=== PATIENT | female | born 1960 | race Caucasian/White ===

== ENCOUNTER 2020-04-29 17:59 | Emergency (ER) | payer OTHER, SELFPAY ==
--- NOTE | ~2020-04-29 | XR_ITS ---
EXAMINATION: XR ankle LT min 3V, XR foot LT min 3V DATE: 04/29/2020 18:17 INDICATION: Lateral left foot and ankle pain post twisting injury. TECHNIQUE: 1. Anteroposterior, mortise, additional oblique and lateral view of the left ankle were obtained. 2. Dorsoplantar, two oblique and lateral views of the left foot were obtained. COMPARISON: 03/27/2018 FINDINGS: Again seen is a minimally displaced chronic nonunited fracture across the tip of the lateral malleolu s. Acute nondisplaced fracture across the base of the fifth metatarsal which appears to extend to the cortex medially at the junction of the articulation with the cuboid and base of the fourth metatarsa l. No other fractures identified. Buddy remains essentially anatomic. Mild polyarticular osteoarthri tis at several of the joints in the mid and forefoot. Diffuse osteopenia. Small plantar calcaneal spu r. No ankle joint effusion. IMPRESSION: 1. Acute nondisplaced intra-articular fracture at the base of the left fifth metatarsal. 2. Minimally displaced chronic nonunited avulsion fracture at the tip of the lateral malleolus. Reviewed, dictated and finalized at location A. IMPRESSION: 1. Acute nondisplaced intra-articular fracture at the base of the left fifth me tatarsal. 2. Minimally displaced chronic nonunited avulsion fracture at the tip of the la teral malleolus.
--- NOTE | 2020-04-29 18:07 | ED.LOWEXIN ---
HPI - Extremity Injury (Lower) General Chief Complaint: Extremity Injury, Lower Stated Complaint: right foot pain Source: patient and RN notes reviewed Mode of arrival: ambulatory Limitations: no limitations History of Present Illness HPI Narrative: The patient, with a history of AODM, ankle fractures and is on Lyrica for neuropathy, presents with left ankle pain. Patient states she slipped while wearing flip-flops yesterday and complains of lateral pain that is worse with motion, better at rest. No bleeding, deformity and pain is worse with the fifth metatarsal proximally. She also request medication for itchy nose and sinus/allergy headaches. Related Data Home Medications Medication Instructions Recorded Confirmed glipizide 2.5 mg PO BID 08/11/19 08/11/19 metformin 1,000 mg PO BID 08/11/19 08/11/19 pregabalin [Lyrica] 75 mg PO HS 08/11/19 08/11/19 omeprazole 04/29/20 Allergies Allergy/AdvReac Type Severity Reaction Status Date / Time Jgdxgpt-Nsz-Gmi Reductase Allergy Mild pain Verified 08/11/19 15:38 Inhibitor acetaminophen Allergy Unknown Itching Verified 08/11/19 15:38 hydrocodone Allergy Unknown Itching Verified 08/11/19 15:38 propoxyphene Allergy Unknown Swelling Verified 08/11/19 15:38 of Lip/Tongue/Throat tramadol Allergy Unknown Itching Verified 08/11/19 15:38 codeine AdvReac Unknown Nausea and Verified 08/11/19 15:38 Vomiting Review of Systems Review of Systems: Narrative: General/Constitutional: No weight loss,fever Eyes: N0: Redness,discharge Ears/Nose/Throat: No: Epistaxis,ear discharge Respiratory: Denies: Hemoptysis Gastrointestinal: No Vomiting, Bleeding-rectal Skin: No Lumps, eruption Neurologic: No Focal Weakness,Sz Hematologic: Denies: Petechiae/Purpura Psychiatric: No: Suicida ideationl All Other Systems: Reviewed and Negative [facility] Past Medical History Medical History (Updated 04/30/20 @ 08:45 by Igor Celestin MD) Diabetes GERD (gastroesophageal reflux disease) Hyperlipidemia Osteoarthritis Tubal infertility in female Surgical History Surgical History (Updated 08/13/19 @ 12:34 by Malou Fox NP) History of cholecystectomy History of [place] fundoplication Previous section Comments At time of signature, agree with nursing past medical, surgical, social and family history. There is no relevant family history pertinent to the presenting complaint Exam Narrative: Exam Narrative: General Appearance: Well appearing, Well nourished, No distress EYE: PERRLA, EOMI, Conjunctiva clear Ears: External ear normal, Auditory canal normal Nose: Normal nose, Nares clear Mouth/Throat: Normal appearing, Normal lips Neck: Supple Respiratory: Airway patent, No respiratory distress Musculoskeletal: Normal strength (mostly intact, limited flexion/extension by pain), Tenderness ( laterally, with mild decreased ROM), Swelling (laterally), Other (no anterior drawer, no collateral laxity, no Achilles tenderness, ++ fifth MT tenderness) Skin: Warm, Dry, Normal color Neurological: A&O x3, Speech clear, CN II-XII intact Psychiatric: Normal mood, Normal affect Course Course Emergency Course: Films visualized, interpreted by radiologist, agree, ABnormal see report Vital Signs Vital signs: Vital Signs Temperature 99.3 F 04/29/20 18:20 Pulse Rate 102 H 04/29/20 18:20 Respiratory Rate 16 04/29/20 18:20 Blood Pressure 132/75 04/29/20 18:20 Pulse Oximetry 99 04/29/20 18:20 Temperature 99.3 F 04/29/20 18:20 Pulse Rate 102 H 04/29/20 18:20 Respiratory Rate 16 04/29/20 18:20 Blood Pressure 132/75 04/29/20 18:20 Pulse Oximetry 99 04/29/20 18:20 Discharge Plan Discharge Clinical Impression: Allergic headache Fracture of fifth metatarsal bone Qualifiers: Encounter type: initial encounter Fracture type: closed Fracture alignment: nondisplaced Laterality: left Qualified Code(s): S92.355A - Nondisplaced fra
[2020-04-29 18:20] VITALS: BP 132/75; PULSE 102; RESP 16; TEMP 37.4; O2SAT 99
== END 2020-04-29 18:34 | disposition home or self-care (01) ==
PROVIDERS: Emergency Provider Emergency Medicine; PCP Nurse Practitioner Family
DX: S92.355A Nondisplaced fracture of fifth metatarsal bone, left foot, initial encounter for closed fracture (principal); X50.9XXA Other and unspecified overexertion or strenuous movements or postures, initial encounter; G44.89 Other headache syndrome; M85.80 Other specified disorders of bone density and structure, unspecified site; K21.9 Gastro-esophageal reflux disease without esophagitis; E78.5 Hyperlipidemia, unspecified; M19.90 Unspecified osteoarthritis, unspecified site; E11.40 Type 2 diabetes mellitus with diabetic neuropathy, unspecified
CPT/HCPCS: 73610; 73630; 99213; G0463

== ENCOUNTER 2020-05-31 11:47 | Emergency (ER) | payer OTHER, SELFPAY ==
--- NOTE | 2020-05-31 11:54 | ED.LOWEXIN ---
HPI - Extremity Injury (Lower) General Chief Complaint: Extremity Injury, Lower Stated Complaint: right great toe Time Seen by Provider: 05/31/20 12:00 Source: patient and RN notes reviewed Mode of arrival: ambulatory Limitations: no limitations History of Present Illness HPI Narrative: 59-year-old female with history of diabetes, diabetic neuropathy presents with concern for redness, tenderness, swelling to the lateral edge of her left great toe. Reports she has history of foot infections and had this toe x-rayed at her orthopedic doctor upon injury. Reports the x-ray was unremarkable. Reports several day history of redness, tenderness, swelling next to the nail bed of the first toe of the right foot. She denies fever, drainage, redness of the foot, damage to the nail MD complaint: foot injury Related Data Home Medications Medication Instructions Recorded Confirmed glipizide 2.5 mg PO BID 08/11/19 08/11/19 metformin 1,000 mg PO BID 08/11/19 08/11/19 pregabalin [Lyrica] 75 mg PO HS 08/11/19 08/11/19 omeprazole 04/29/20 Allergies Allergy/AdvReac Type Severity Reaction Status Date / Time Tljbyej-Yps-Kid Reductase Allergy Mild pain Verified 08/11/19 15:38 Inhibitor acetaminophen Allergy Unknown Itching Verified 08/11/19 15:38 hydrocodone Allergy Unknown Itching Verified 08/11/19 15:38 propoxyphene Allergy Unknown Swelling Verified 08/11/19 15:38 of Lip/Tongue/Throat tramadol Allergy Unknown Itching Verified 08/11/19 15:38 codeine AdvReac Unknown Nausea and Verified 08/11/19 15:38 Vomiting Review of Systems Review of Systems: Narrative: CONSTITUTIONAL: Denies malaise, chills, sweats, or fever. CARDIOVASCULAR: Denies chest pain, palpitations, or edema. RESPIRATORY: Denies cough or dyspnea. SKIN: Reports tenderness, redness, mild swelling near the nailbed of the first toe of the right foot MUSCULOSKELETAL: Denies musculoskeletal pain All systems reviewed & are unremarkable except as noted in HPI and below PMFSH Past Medical History Medical History (Updated 05/31/20 @ 12:09 by She Lino NP) Diabetes GERD (gastroesophageal reflux disease) Hyperlipidemia Osteoarthritis Tubal infertility in female Surgical History Surgical History (Updated 08/13/19 @ 12:34 by Malou Fox NP) History of cholecystectomy History of [place] fundoplication Previous section Comments At time of signature, agree with nursing past medical, surgical, social and family history. There is no relevant family history pertinent to the presenting complaint Exam Narrative: Exam Narrative: GENERAL: Well-appearing, well-nourished, and in no acute distress. HEAD: Normocephalic, atraumatic. EYES: PERRLA, conjunctivae clear NECK: Supple. CHEST: Speaks in full sentences. No respiratory distress. HEART: Regular rate and rhythm. Normal and equal peripheral pulses. EXTREMITIES: First digit of right foot has normal strength, decreased sensation, normal range of motion. No digit edema or ecchymosis. 5/5 strength with digit flexion and extension. No open wounds, no skin tenting, no devitalized tissue or atrophy, no trophic changes, no obvious deformity, alignment normal, no point tenderness, nearby joints and structures intact. Distal pulses palpable and equal bilaterally, skin warm, dry, pink. Capillary refill less than 3 seconds. SKIN: Warm, dry, no rash. Erythema, mild induration, tenderness without fluctuation noted lateral edge of the nail bed of the first digit of the right foot NEURO: Alert and oriented x3. PSYCH: Normal mood and affect Course Course Emergency Course: Patient is aware of diagnosis, understands and agrees to treatment plan. Anticipatory guidance given. Patient agrees to follow-up as directed and is aware of reasons to seek care at the emergency department. Portions of this record may have been created with voice recognition software Vital Signs Vital signs: Vital Signs Temperature 99
[2020-05-31 12:01] VITALS: BP 146/68; PULSE 85; RESP 16; TEMP 37.2; O2SAT 100
== END 2020-05-31 12:17 | disposition home or self-care (01) ==
PROVIDERS: Emergency Provider Nurse Practitioner; PCP Nurse Practitioner Family
DX: L03.031 Cellulitis of right toe (principal); E11.9 Type 2 diabetes mellitus without complications; K21.9 Gastro-esophageal reflux disease without esophagitis; E78.5 Hyperlipidemia, unspecified; M19.90 Unspecified osteoarthritis, unspecified site
CPT/HCPCS: 99213; G0463

== ENCOUNTER 2021-04-09 13:13 | Outpatient (CLI) | payer OTHER, SELFPAY ==
--- NOTE | ~2021-04-09 | US_ITS ---
EXAMINATION: US FNA w image guidance DATE: 04/09/2021 14:10 INDICATION: Nontoxic single thyroid nodule TECHNIQUE: A time-out was performed to verify the patient's name, date of , and procedure to be performed . The procedure and its benefits and risks were discussed with the patient. Risks specifically discus sed included bleeding and infection. The patient understood the risks and agreed to proceed. The neck was prepped and draped in the usual sterile manner. 3 mL 1% lidocaine was used for local anesthesia . 6 passes were made with a 25G needle into the lesion. Appropriate needle location was documented with continuous sonographic guidance. The specimens were passed to the hematology technologist in the room. A sterile bandage was applied. There were no immediate complications. FINDINGS: Grayscale ultrasound images demonstrate biopsy needles advanced into a 1.2 cm TI RADS 5 wider than ta ll very hypoechoic nodule with rim calcification and lobular margins in the left thyroid lobe. IMPRESSION: 1. Successful ultrasound-guided fine needle aspiration of a 1.2 cm TI RADS 5 left thyroid nodule. Reviewed, dictated and finalized at location A. IMPRESSION: 1. Successful ultrasound-guided fine needle aspiration of a 1.2 cm TI RADS 5 l eft thyroid nodule.
== END 2021-04-09 13:14 | disposition home or self-care (01) ==
PROVIDERS: PCP Nurse Practitioner Family; Visit Provider Otolaryngology
DX: E04.1 Nontoxic single thyroid nodule (principal)
CPT/HCPCS: 10005; 88173; 88305

== ENCOUNTER 2021-05-08 18:35 | Observation (INO) | payer OTHER, SELFPAY ==
--- NOTE | ~2021-05-08 | XR_ITS ---
XR chest 2V DATE: 05/08/2021 19:04 INDICATION: Left-sided chest pain. TECHNIQUE: PA and lateral views COMPARISON: 10/11/2018 PA and lateral chest FINDINGS: Normal heart size. No hilar or mediastinal enlargement. Moderate sized hiatal hernia. No pulmonary infiltrate or consolidation, pleural effusion or pulmonary vascular congestion or pneumo thorax. Status post cholecystectomy. IMPRESSION: No active cardiopulmonary disease Hiatal hernia Status post cholecystectomy Reviewed, dictated and finalized at location A.
[2021-05-08 18:39] VITALS: BP 164/92; PULSE 85; RESP 16; TEMP 36.6; O2SAT 97
--- NOTE | 2021-05-08 18:43 | ECG_ITS ---
Measurements Intervals [place] Rate: 84 P: 13 WV: 125 QRS: 27 QRSD: 80 T: 30 QT: 368 QTc: 437 Interpretive Statements SINUS RHYTHM BASELINE WANDER- V3 NORMAL ECG Electronically Signed On 05-09-2021 8:17:13 CDT by Cirilo Garcia D.O.
[2021-05-08 18:53] LABS: Basophils Absolute Auto 0.1 K/mm3 (0.0-0.1); Basophils Percent Auto 0.8 % (0.2-1.2); Eosinophils Absolute Auto 0.2 K/mm3 (0-0.3); Eosinophils Percent Auto 3.4 % (0-4.4); Hematocrit 39.9 % (37.0-47.0); Hemoglobin 12.7 g/dL (12.0-15.0); Immature Granulocyte Absolute 0.02 K/mm3 (0.00-0.031); Immature Granulocyte Percent A 0.3 % (0-0.5); Lymphocytes Absolute Auto 2.65 K/mm3 (0.9-3.2); Lymphocytes Percent Auto 42.6 % (18.3-44.2); Mean Corpuscular HGB Conc 31.8 g/dl (32-36); Mean Corpuscular Hemoglobin 26.1 pg (26-34); Mean Corpuscular Volume 81.9 fl (80-100); Mean Platelet Volume 9.7 fl (7.4-10.4); Monocytes Absolute Auto 0.4 K/mm3 (0.1-0.6); Monocytes Percent Auto 6.6 % (2.6-8.5); Neutrophils Absolute Auto 2.9 K/mm3 (1.3-6.7); Neutrophils Percent Auto 46.3 % (45.5-73.1); Platelet Count Result 233 k/mm3 (150-375); Red Blood Count 4.87 M/mm3 (4.2-5.4); White Blood Count 6.2 K/mm3 (4.5-10.0)
[2021-05-08 19:02] LABS: INR 0.9; Prothrombin Time 11.7 Seconds (11.1-14.7)
[2021-05-08 19:03] LABS: Partial Thromboplastin Time 27.5 SECONDS (22.3-36.8)
[2021-05-08 19:05] LABS: Anion Gap 10 mmol/L (8-16); Blood Urea Nitrogen 13 mg/dL (7-17); Calcium 9.5 mg/dL (8.4-10.2); Carbon Dioxide 27 mmol/L (22-30); Chloride 105 mmol/L (98-107); Estimated CRCL calculation 62 ml/min; Estimated Glomerular Filt Rate > 60; Glucose 167 mg/dL (65-110); Potassium 4.2 mmol/L (3.4-5.0); Sodium 142 mmol/L (137-145)
[2021-05-08 19:15] LABS: Troponin I < 0.012 ng/mL (0.000-0.034)
--- NOTE | 2021-05-08 19:20 | ED.CHESTPAIN ---
HPI - Chest Pain General Chief Complaint: Chest Pain Stated Complaint: chest pain Time Seen by Provider: 05/08/21 18:51 Source: patient Mode of arrival: ambulatory Limitations: no limitations History of Present Illness HPI narrative: Patient is a 60-year-old female complaining of chest pain, left chest, tightness, rating to left arm, 6 out of 10, started this afternoon. Patient denies any shortness of breath, abdominal pain, nausea, vomiting, diaphoresis, fever or chills. Related Data Home Medications Medication Instructions Recorded Confirmed glipizide 2.5 mg PO BID 08/11/19 08/11/19 metformin 1,000 mg PO BID 08/11/19 08/11/19 pregabalin [Lyrica] 75 mg PO HS 08/11/19 08/11/19 omeprazole 04/29/20 Allergies Allergy/AdvReac Type Severity Reaction Status Date / Time Nftzpsf-Vgg-Xpp Reductase Allergy Mild pain Verified 08/11/19 15:38 Inhibitor acetaminophen Allergy Unknown Itching Verified 08/11/19 15:38 hydrocodone Allergy Unknown Itching Verified 08/11/19 15:38 propoxyphene Allergy Unknown Swelling Verified 08/11/19 15:38 of Lip/Tongue/Throat tramadol Allergy Unknown Itching Verified 08/11/19 15:38 codeine AdvReac Unknown Nausea and Verified 08/11/19 15:38 Vomiting Review of Systems Review of Systems: All systems reviewed & are unremarkable except as noted in HPI and below Constitutional: Constitutional: Denies body ache(s), Denies chills, Denies excessive sweating, Denies fatigue, Denies fever(s), Denies headache(s), Denies lethargy, Denies malaise, Denies weakness and Denies weight loss Eyes: Eyes: Denies blurry vision, Denies change in vision and Denies loss of vision ENT: Denies dizziness, Denies ear discharge, Denies headache(s), Denies lip swelling, Denies epistaxis, Denies nasal congestion, Denies neck pain, Denies throat swelling and Denies tongue swelling Cardiovascular: Cardiovascular: Denies diaphoresis, Denies rapid heart rate, Denies edema, Denies irregular heart rhythm, Denies lightheadedness, Denies palpitations, Denies dyspnea and Denies dyspnea on exertion Respiratory: Respiratory: Denies chest congestion, Denies cough, Denies hemoptysis, Denies dyspnea and Denies dyspnea on exertion Gastrointestinal: Gastrointestinal: Denies abdominal pain, Denies melena, Denies hematochezia, Denies diarrhea, Denies nausea, Denies vomiting and Denies hematemesis Musculoskeletal: Musculoskeletal: Denies abnormal gait, Denies deformity, Denies joint swelling, Denies limited range of motion, Denies neck pain and Denies numbness Neurologic: Denies Abnormal speech present, Denies abnormal gait, Denies confusion, Denies dizziness, Denies headache(s), Denies focal weakness, Denies loss of vision, Denies numbness, Denies Other visual disturbances, Denies Sensory deficit (Neuro) and Denies weakness Psychiatric: Psychiatric: Denies confusion, Denies depression, Denies auditory hallucinations, Denies homicidal ideation and Denies suicidal ideation Endocrine: Endocrine: Denies cold intolerance, Denies excessive sweating, Denies fatigue, Denies heat intolerance and Denies palpitations Hematologic/Lymphatic: Hematologic/Lymphatic: Denies easy bleeding and Denies easy bruising Allergic/Immunologic: Allergic/Immunologic: Denies lip swelling, Denies throat swelling and Denies tongue swelling PMFSH Past Medical History Medical History Diabetes GERD (gastroesophageal reflux disease) Hyperlipidemia Osteoarthritis Tubal infertility in female Surgical History Surgical History History of cholecystectomy History of [place] fundoplication Previous section Exam Const: General: cooperative, healthy appearing, comfortable, no acute distress, well developed, alert and awake; No confusion Orientation/consciousness: oriented to person, oriented to place, oriented to time, patient oriented x3 and No
[2021-05-08 20:57] VITALS: BP 162/90; PULSE 87; RESP 18; O2SAT 97
[2021-05-08 22:00] LABS: D Dimer 0.35 ug/mL (<0.48)
--- NOTE | 2021-05-08 22:05 | PC.NURSE ---
called to give report, i was told the nurse is in a room with a patient and that she will call me back .
[2021-05-08 22:06] LABS: Troponin I < 0.012 ng/mL (0.000-0.034)
--- NOTE | 2021-05-08 22:21 | PM.IMHP ---
H&P: HPI History of Present Illness Date/Time: 05/08/21 22:21 this is a 60-year-old female patient who has a past medical history of diabetes. The patient stated that she also has history of carpal tunnel syndrome as well as acid reflux. The patient has no prior CV any heart disease or high blood pressure. The patient stated that she was sitting outside today watching her grandchildren's swim when she developed some left chest pain some tightness and some left arm pain left shoulder pain. She rated her pain 6/10. Started this afternoon. The patient stated that she would lay down and she slipped for brief period time but then when she woke up she was still complaining of left shoulder left elbow left wrist pain. The patient stated she was not sure she was having some acid reflux because she also had some epigastric discomfort. She said that she took for low-dose aspirin prior to coming to the emergency room. The patient stated that she felt nauseated and was diaphoretic at the time. She has not had any previous stress test in the past. Patient has had injections in her left hand in the past for arthritis and she thought that maybe her carpal tunnel was bothering her today. Two sets of troponin are found to be negative so far and her EKG was read as normal sinus rhythm. Her blood sugar was noted to be 167. The patient was requesting to go home. However we were able to convince the patient to stay overnight to be evaluated. The patient still continues to have some left shoulder and left elbow pain. She states that she also has some pain under her left breast which is not reproducible. She denies any shortness of breath. She states that the pain is fading and is almost nearly gone. The patient is being admitted to observation on the date of service of 05/08/2021. Chief Complaint: Chest pain Review of Systems Review of Systems: All systems reviewed & are unremarkable except as noted in HPI and below Constitutional: Constitutional: Reports as per HPI and Reports no additional constitutional complaints Eyes: Eyes: Reports as per HPI and Reports no additional eye complaints ENT: Reports system reviewed and no additional complaints, except as documented and Reports Normal hearing present Cardiovascular: Cardiovascular: Reports no additional cardiovascular complaints Respiratory: Respiratory: Reports no additional respiratory complaints and Reports no additional respiratory complaints Gastrointestinal: Gastrointestinal: Reports as per HPI and Reports no additional gastrointestinal complaints Musculoskeletal: Musculoskeletal: Reports no additional musculoskeletal complaints Integumentary/Breasts: Skin/Breast: Reports system reviewed and no additional complaints, except as docu and Reports as per HPI Neurologic: Reports system reviewed and no additional complaints, except as documented, Reports as per HPI and Reports Normal hearing present Psychiatric: Psychiatric: Reports no additional psychiatric complaints and Reports as per HPI Endocrine: Endocrine: Reports no additional endocrine complaints Hematologic/Lymphatic: Hematologic/Lymphatic: Reports no additional hematologic/lymphatic complaints Allergic/Immunologic: Allergic/Immunologic: Reports no additional allergic/immunologic complaints [facility] Past Medical History Medical History (Updated 05/08/21 @ 22:33 by Gina Moscoso NP) Diabetes GERD (gastroesophageal reflux disease) History of peptic ulcer disease Hyperlipidemia Osteoarthritis Peripheral neuropathy Seasonal allergic conjunctivitis Tubal infertility in female Vitamin D deficiency Surgical History Surgical History (Updated 05/08/21 @ 22:28 by Gina Moscoso NP) H/O rhinoplasty H/O tubal ligation History of carpal tunnel release Right wrist History of cholecystectomy History of [place] fundoplication History of tonsillectomy and adenoidectomy Previous section S/P cubital tunnel release Right elbow
--- NOTE | 2021-05-08 22:43 | ADMGEN ---
This patient, aMkenna Brown, was admitted to IMU Room 211-01. Patient/family oriented to hospital policies and general routines including ID bracelet, bed and alarms, visiting hours, pain management, procedures, bathroom and other care routines, personal items, smoking policy, room service/diet, and visiting hours. Information on how to activate the Rapid Response Team has been discussed. Patient/Family are encouraged to report perceived risks to care and to ask questions if they do not understand what they are told or what they should do.
[2021-05-08 23:06] VITALS: BMI 24.5
[2021-05-09] VITALS: BP 160/74; PULSE 75; PULSE 83; RESP 16; TEMP 36.2; O2SAT 99
[2021-05-09 01:08] LABS: Add Urine Microscopic? YES; Appearance Urine Clear (Clear); Bilirubin Urine Negative (Negative); Blood Urine Negative (Negative); Color Urine Straw (Yellow); Glucose Urine UA 1+ mg/dL (Negative); Ketones Urine Negative (Negative); Leukocyte Esterase Ur Negative LEU/UL (NEGATIVE); Nitrate Urine Negative (Negative); Protein Urine Negative (Negative); RBC Urine 0-2 /hpf (0-2); Specific Grav Ur 1.009 (1.001-1.035); Urobilinogen Urine Negative mg/dL (<2.0); WBC Urine 0-3 /hpf (0-3)
[2021-05-09 01:31] LABS: Troponin I < 0.012 ng/mL (0.000-0.034)
[2021-05-09 02:00] VITALS: PULSE 72
[2021-05-09 04:00] VITALS: BP 125/67; PULSE 73; PULSE 77; RESP 16; TEMP 36.7; O2SAT 98
[2021-05-09 05:17] LABS: Alanine Aminotransferase 22 U/L (4-35); Albumin Level 4.3 g/dL (3.5-5.1); Alkaline Phosphatase 91 U/L (38-126); Anion Gap 8 mmol/L (8-16); Aspartate Amino Transferase 32 U/L (14-36); Bilirubin,Total 0.6 mg/dL (0.2-1.3); Blood Urea Nitrogen 12 mg/dL (7-17); Calcium 8.9 mg/dL (8.4-10.2); Carbon Dioxide 26 mmol/L (22-30); Chloride 106 mmol/L (98-107); Estimated CRCL calculation 72 ml/min; Estimated Glomerular Filt Rate > 60; Glucose 93 mg/dL (65-110); Lactate Dehydrogenase 389 U/L (313-618); Lipase 192 U/L (23-300); Magnesium 1.2 mg/dL (1.6-2.3); Potassium 3.7 mmol/L (3.4-5.0); Sodium 140 mmol/L (137-145)
[2021-05-09 05:20] LABS: Basophils Absolute Auto 0.1 K/mm3 (0.0-0.1); Basophils Percent Auto 1.3 % (0.2-1.2); Eosinophils Absolute Auto 0.3 K/mm3 (0-0.3); Hematocrit 37.6 % (37.0-47.0); Immature Granulocyte Absolute 0.04 K/mm3 (0.00-0.031); Immature Granulocyte Percent A 0.6 % (0-0.5); Lymphocytes Absolute Auto 3.15 K/mm3 (0.9-3.2); Lymphocytes Percent Auto 49.7 % (18.3-44.2); Mean Corpuscular HGB Conc 31.9 g/dl (32-36); Mean Corpuscular Hemoglobin 25.6 pg (26-34); Mean Corpuscular Volume 80.3 fl (80-100); Mean Platelet Volume 10.3 fl (7.4-10.4); Monocytes Absolute Auto 0.5 K/mm3 (0.1-0.6); Neutrophils Absolute Auto 2.2 K/mm3 (1.3-6.7); Neutrophils Percent Auto 35.4 % (45.5-73.1); Platelet Count Result 259 k/mm3 (150-375); Red Blood Count 4.68 M/mm3 (4.2-5.4); Red Cell Distribution Width 13.9 % (11.5-14.5); White Blood Count 6.3 K/mm3 (4.5-10.0)
[2021-05-09 06:00] VITALS: PULSE 80
[2021-05-09 08:00] VITALS: BP 139/69; PULSE 82; PULSE 83; RESP 18; TEMP 36.7; O2SAT 97
[2021-05-09 08:39] LABS: Glucose Point of Care 110 mg/dl (65-105)
--- NOTE | 2021-05-09 09:14 | PM.DS ---
DS: Admitting Diagnosis Admitting Diagnosis Chest pain, heart burn symptoms DS: Discharge Diagnosis Discharge Diagnosis (1) GERD (gastroesophageal reflux disease): Code(s): K21.9 - Gastro-esophageal reflux disease without esophagitis Status: Chronic (2) Chest pain: Qualifiers: Chest pain type: unspecified Qualified Code(s): R07.9 - Chest pain, unspecified Code(s): R07.9 - Chest pain, unspecified Status: Acute (3) Diabetes: Code(s): E11.9 - Type 2 diabetes mellitus without complications Status: Chronic DS: Summary Hospital Course Hospital Course: This is a very pleasant 52-year-old woman with past medical history of type 2 diabetes mellitus, gastroesophageal reflux disease (history [place] fundoplication procedure in the distant past), history peptic ulcer disease, carpal tunnel syndrome, and hyperlipidemia, who presented to the emergency department on 05/08 with concern chest pain along with left arm and shoulder pain. This was rated as 6/10. Not associated with exertion and came on at rest. This was worse when she would lay down flat. Better when she was upright. In the emergency department she had a chest x-ray that showed a hiatal hernia but otherwise no significant findings. EKG showed normal sinus rhythm. No significant ST-T wave changes. She did receive a baby aspirin in the emergency department. She was admitted to the hospital for observation and her troponins were followed. Three sets of troponins were negative. Her pain quickly subsided and resolved. She did endorse missing her PPI the day prior and felt her symptoms were consistent with gastroesophageal reflux disease which she dealt with for many years. However, given history of diabetes, and other risk factors, I had a long discussion with her about the need for close follow-up with her primary provider and undergoing stress testing to evaluate for coronary artery disease. During her stay her blood pressure was noted to be elevated and she was initiated on carvedilol 12.5 mg b.i.d. she was recently diagnosed with urinary tract infection and her Macrobid was continued. Her other home medications were continued. She did have elevated cholesterol, and elevated LDL of 150. I discussed with her my recommendation of initiation a statin. She has had prior significant myalgias with statins and did not want initiated during this hospitalization, I encouraged her to discuss this with her primary provider. Time Spent with Patient Time attestation: Total time spent providing and/or coordinating discharge services: 35 Exam Narrative: Gen: Alert, NAD Abd: Soft, NT, ND Heart: RRR Lungs: CTAB Ext: No lower extremity edema DS: Data Data Completed and Pending Labs on day of discharge: Labs from last 24 hours 05/09/21 05/09/21 05/09/21 07:57 04:30 04:30 WBC RBC Hgb Hct MCV MCH MCHC RDW Plt Count MPV Immature Gran % (Auto) Neut % (Auto) Lymph % (Auto) [place] % (Auto) Eos % (Auto) Baso % (Auto) Lymph # (Auto) [place] # (Auto) Eos # (Auto) Baso # (Auto) Abs Immat Gran (auto) Absolute Neuts (auto) Absolute Nucleated RBC Nucleated RBC % PT INR APTT D-Dimer Sodium Potassium Chloride Carbon Dioxide Anion Gap BUN Creatinine Estim Creat Clear Calc Estimated GFR Glucose POC Capillary Glucose 110 H Hemoglobin A1c 9.0 H Calcium Magnesium Total Bilirubin AST ALT Alkaline Phosphatase Lactate Dehydrogenase Troponin I Total Protein Albumin Lipase TSH (Reflex) 3.270 Urine Color Urine Appearance Urine pH Ur Specific [place] Urine Protein Urine Glucose (UA) Urine Ketones Ur Blood (Man) Urine Nitrate Urine Bilirubin Urine Urobilinogen Ur Leukocyte Esterase Urine RBC Urine WBC 05/09/21 05/09/21 05/09/21
[2021-05-09 09:49] LABS: Cholesterol 268 mg/dL (0-200); HDL Direct 51 mg/dL; Triglycerides 177 mg/dL (<150)
[2021-05-09 10:00] VITALS: PULSE 93
[2021-05-09 10:00] LABS: LDL Cholesterol Direct 151 mg/dL
[2021-05-09] MEDS: MAGNESIUM SULF 4 GM/WATER100ML 4 GM/100 ML BAG IVPB (10:06)
== END 2021-05-09 11:51 | disposition home or self-care (01) ==
LOC: ANHED 20:39 → ANHIMU 21:34
PROVIDERS: Nurse Practitioner; Admitting Provider Internal Medicine; Emergency Provider Emergency Medicine; PCP Nurse Practitioner Family; Visit Provider Internal Medicine Nephrology
DX: K21.9 Gastro-esophageal reflux disease without esophagitis (principal); R07.9 Chest pain, unspecified; E11.42 Type 2 diabetes mellitus with diabetic polyneuropathy; E04.1 Nontoxic single thyroid nodule; Z79.84 Long term (current) use of oral hypoglycemic drugs
CPT/HCPCS: 36415; 71046; 80048; 80053; 80061; 81001; 82948; 83036; 83615; 83690; 83735; 84443; 84484; 85025; 85380; 85610; 85730; 93005; 96365; 99285; A9270; G0378; G0379; J3475

== ENCOUNTER 2022-01-09 13:40 | Emergency (ER) | payer OTHER, SELFPAY ==
[2022-01-09 13:50] VITALS: BP 157/74; PULSE 87; RESP 18; TEMP 36.7; O2SAT 99
--- NOTE | 2022-01-09 13:58 | ED.SKABFB ---
HPI - Skin/Abscess/Foreign Bdy General Chief complaint: Skin/Abscess/Foreign Body Stated complaint: Insect Bite Time Seen by Provider: 01/09/22 13:59 Source: patient, RN notes reviewed and old records reviewed Mode of arrival: ambulatory Limitations: no limitations History of Present Illness HPI narrative: 61-year-old female presents to the [facility] with an insect bite to the left lower neck. States she was working outside in her shed yesterday when she felt something on her neck. Ever since it is gotten bigger, itchy and warm. Has applied Benadryl cream. complaint: rash Related Data Home Medications Medication Instructions Recorded Confirmed metformin 1,000 mg PO BID 08/11/19 01/09/22 omeprazole 40 mg PO DAILY 04/29/20 01/09/22 cyanocobalamin (vitamin B-12) 1,000 mcg PO DAILY 05/08/21 01/09/22 glimepiride 2 mg PO DAILY 05/08/21 01/09/22 magnesium oxide 400 mg PO DAILY 05/08/21 01/09/22 montelukast 10 mg PO DAILY 05/08/21 01/09/22 pregabalin 25 mg PO DAILY 05/08/21 01/09/22 pregabalin 100 mg PO DAILY 05/08/21 01/09/22 insulin glargine [Lantus Solostar 100 unit SUBCUT DIRECTED 01/09/22 01/09/22 U-100 Insulin] levothyroxine 75 mcg PO DAILY 01/09/22 01/09/22 Allergies Allergy/AdvReac Type Severity Reaction Status Date / Time Njofbly-HLT-JhN Reductase Allergy Mild pain Verified 01/09/22 13:45 Inhibitor [Sdhnfpj-Awh-Zpp Reductase Inhibitor] acetaminophen Allergy Unknown Itching Verified 01/09/22 13:45 hydrocodone Allergy Unknown Itching Verified 01/09/22 13:45 propoxyphene Allergy Unknown Swelling Verified 01/09/22 13:45 of Lip/Tongue/Throat tramadol Allergy Unknown Itching Verified 01/09/22 13:45 codeine AdvReac Unknown Nausea and Verified 01/09/22 13:45 Vomiting Review of Systems Review of Systems: All systems reviewed & are unremarkable except as noted in HPI and below Constitutional: Constitutional: Reports no additional constitutional complaints, Denies chills and Denies fever(s) Eyes: Eyes: Reports no additional eye complaints ENT: Reports system reviewed and no additional complaints, except as documented Cardiovascular: Cardiovascular: Reports no additional cardiovascular complaints, Denies chest pain and Denies dyspnea Respiratory: Respiratory: Reports no additional respiratory complaints, Denies cough and Denies dyspnea Gastrointestinal: Gastrointestinal: Reports no additional gastrointestinal complaints, Denies abdominal pain, Denies nausea and Denies vomiting Musculoskeletal: Musculoskeletal: Reports no additional musculoskeletal complaints Integumentary/Breasts: Skin/Breast: Reports as per HPI Comments: Red area left lateral lower neck Neurologic: Reports system reviewed and no additional complaints, except as documented Psychiatric: Psychiatric: Reports no additional psychiatric complaints Allergic/Immunologic: Allergic/Immunologic: Reports no additional allergic/immunologic complaints [facility] Past Medical History Medical History (Updated 01/09/22 @ 14:05 by She David APRN) Diabetes GERD (gastroesophageal reflux disease) History of peptic ulcer disease Hyperlipidemia Osteoarthritis Peripheral neuropathy Seasonal allergic conjunctivitis Tubal infertility in female Vitamin D deficiency Surgical History Surgical History H/O rhinoplasty H/O tubal ligation History of carpal tunnel release Right wrist History of cholecystectomy History of [place] fundoplication History of tonsillectomy and adenoidectomy Previous section S/P cubital tunnel release Right elbow S/P thyroid biopsy Family History Family History Mother Diabetes mellitus Heart disease Breast cancer Carcinoma of colon Hypertension Father Heart disease Sibling Diabetes mellitus Liver cancer Cardiac aneurysm Social History Social History (Reviewe
== END 2022-01-09 14:09 | disposition home or self-care (01) ==
PROVIDERS: Emergency Provider Nurse Practitioner; PCP Nurse Practitioner Family
DX: S10.96XA Insect bite of unspecified part of neck, initial encounter (principal); E78.5 Hyperlipidemia, unspecified; E11.9 Type 2 diabetes mellitus without complications; W57.XXXA Bitten or stung by nonvenomous insect and other nonvenomous arthropods, initial encounter
CPT/HCPCS: 99213; G0463

== ENCOUNTER 2022-09-27 07:34 | Outpatient (CLI) | payer OTHER, SELFPAY ==
--- NOTE | ~2022-09-27 | NM_ITS ---
EXAM: NM gastric emptying study DATE: 09/27/2022 13:03 INDICATION: Heart burn TECHNIQUE: A gastric emptying study was performed using the methodology of Philipp HARTMAN, et al. J Nucl Med 2007; 48:568-572. The patient was given a meal consisting of 2 scrambled eggs labeled with 1.1 m Ci Tc-99m sulfur colloid, 2 slices of toast, two packages of jam, and approximately 120 mL of water. Simultaneous anterior and posterior 1-min images of the abdomen were obtained with the patient supine at multiple time points over a total period of 4 hours. The geometric mean of anterior and posterior views was determined, and the percentage retention was calculated for each time point. COMPARISON: None. FINDINGS: Gastric retention of the radiotracer-labeled meal was 72%, 60%, and 39% at the 1-hour, 2-hour, and 4- hour time points, respectively. With this technique, apparent rapid gastric emptying is suggested by <30% gastric retention at 1 hour. Delayed gastric emptying is defined by gastric retention of >90% at 1 hour, >60% retention at 2 hours, or >10% retention at 4 hours. IMPRESSION: 1. Delayed gastric emptying. Reviewed, dictated and finalized at location A. WORKER
== END 2022-09-27 07:35 | disposition home or self-care (01) ==
PROVIDERS: PCP Nurse Practitioner Family; Visit Provider Internal Medicine Endocrinology, Diabetes & Metabolism
DX: K30 Functional dyspepsia (principal)
CPT/HCPCS: 78264; A9541

== ENCOUNTER 2024-05-23 16:27 | Emergency (ER) | payer OTHER, SELFPAY ==
--- NOTE | ~2024-05-23 | XR_ITS ---
EXAMINATION: XR lumbar spine 2-3V DATE: 05/23/2024 17:05 INDICATION: Low back pain. Fall. TECHNIQUE: 3 views of lumbar spine were obtained. COMPARISON: None. FINDINGS: There is 12 degrees levoscoliosis of thoracic lumbar spine. Vertebral body heights are norm al. There is mildly decreased disc height at L4-L5 and moderately decreased disc height at L5-S1. The re is multilevel facet joint osteoarthritis, severe in lower lumbar spine. Surgical clips in the righ t upper quadrant are likely from cholecystectomy. IMPRESSION: 1. Moderate lower lumbar spondylosis. 2. Thoracolumbar levoscoliosis. Reviewed, dictated and finalized at location A.
--- NOTE | ~2024-05-23 | XR_ITS ---
EXAMINATION: XR foot LT min 3V DATE: 05/23/2024 17:05 INDICATION: Left foot pain. TECHNIQUE: 4 views of left foot were obtained. COMPARISON: None. FINDINGS: Bone alignment is normal. No fracture. There is mild osteoarthritis of first metatarsophala ngeal joint and talonavicular joint. There is an enthesophyte at plantar aspect of calcaneal tuberosi ty. IMPRESSION: 1. Mild polyarticular osteoarthritis. Reviewed, dictated and finalized at location A.
--- NOTE | ~2024-05-23 | XR_ITS ---
EXAMINATION: XR ankle LT min 3V DATE: 05/23/2024 17:05 INDICATION: Left ankle pain. TECHNIQUE: 5 views of left ankle were obtained. COMPARISON: None. FINDINGS: Alignment is normal. No fracture. There is mild osteoarthritis of talonavicular joint. Ther e is an enthesophyte at plantar aspect of calcaneal tuberosity. IMPRESSION: 1. Mild osteoarthritis of talonavicular joint. Reviewed, dictated and finalized at location A.
--- NOTE | 2024-05-23 16:29 | ED.LOWEXIN ---
HPI - Extremity Injury (Lower) General Chief Complaint: Extremity Injury, Lower Stated Complaint: left foot,lower back,back of leg,left knee bruise Time Seen by Provider: 05/23/24 16:29 Source: patient Mode of arrival: ambulatory Limitations: no limitations History of Present Illness HPI Narrative: Makenna is a 63-year-old female patient presenting to the clinic today with complaints of left heel pain, left lateral foot pain, low midback pain with radiating down her bilateral legs, and a left knee contusion after falling this evening. She reports she was coming outside of a building and did not realize that there was quite a step down and twisted her ankle and tried to hold herself up with her left arm using the door and this and for her back. She is reporting pain in her lobe midback worse with standing. Having pain to the posterior and lateral ankle and foot. No obvious bruising and swelling noted at this time Related Data Home Medications Medication Instructions Recorded Confirmed metformin 1,000 mg tablet 1,000 mg PO BID 08/11/19 05/23/24 omeprazole 40 mg capsule,delayed 40 mg PO DAILY 04/29/20 05/23/24 release cyanocobalamin (vitamin B-12) 1,000 mcg PO DAILY 05/08/21 05/23/24 1,000 mcg tablet glimepiride 2 mg tablet 2 mg PO DAILY 05/08/21 05/23/24 magnesium oxide 400 mg (241.3 mg 400 mg PO DAILY 05/08/21 05/23/24 magnesium) tablet montelukast 10 mg tablet 10 mg PO DAILY 05/08/21 05/23/24 pregabalin 100 mg capsule 100 mg PO DAILY 05/08/21 05/23/24 pregabalin 25 mg capsule 25 mg PO DAILY 05/08/21 01/09/22 insulin glargine 100 unit/mL (3 100 unit subcut DIRECTED 01/09/22 01/09/22 mL) subcutaneous pen (Lantus Solostar U-100 Insulin) levothyroxine 75 mcg tablet 75 mcg PO DAILY 01/09/22 01/09/22 dapagliflozin propanediol 10 mg mg 05/23/24 tablet (Farxiga) dulaglutide 3 mg/0.5 mL mg subcut 05/23/24 [facility] Allergies Allergy/AdvReac Type Severity Reaction Status Date / Time Tqcicmi-EFM-LhI Reductase Allergy Mild pain Verified 05/23/24 16:46 Inhibitor [Dypxfle-Ovz-Cwy Reductase Inhibitor] acetaminophen Allergy Unknown Itching Verified 05/23/24 16:46 hydrocodone Allergy Unknown Itching Verified 05/23/24 16:46 propoxyphene Allergy Unknown Swelling Verified 05/23/24 16:46 of Lip/Tongue/Throat tramadol Allergy Unknown Itching Verified 05/23/24 16:46 codeine AdvReac Unknown Nausea and Verified 05/23/24 16:46 Vomiting Review of Systems Review of Systems: Pertinent positives per HPI. Patient denies any fever, chills, rash, headache, visual changes, dizziness, cough, runny nose, sore throat, shortness of breath, chest pain, palpitations, nausea, vomiting, diarrhea, constipation, abdominal pain, or any urinary issues. [facility] Past Medical History Medical History Diabetes GERD (gastroesophageal reflux disease) History of peptic ulcer disease Hyperlipidemia Osteoarthritis Peripheral neuropathy Seasonal allergic conjunctivitis Tubal infertility in female Vitamin D deficiency Surgical History Surgical History H/O rhinoplasty H/O tubal ligation History of carpal tunnel release Right wrist History of cholecystectomy History of [place] fundoplication History of tonsillectomy and adenoidectomy Previous section S/P cubital tunnel release Right elbow S/P thyroid biopsy Family History Family History Mother Diabetes mellitus Heart disease Breast cancer Carcinoma of colon Hypertension Father Heart disease Sibling Diabetes mellitus Liver cancer Cardiac aneurysm Social History Social History Social History: The patient lives with her and she is unemployed. The patient has 2 child
[2024-05-23 16:42] VITALS: BP 131/79; PULSE 79; RESP 15; TEMP 36.9; O2SAT 99
== END 2024-05-23 17:32 | disposition home or self-care (01) ==
PROVIDERS: Emergency Provider Nurse Practitioner Family; PCP Nurse Practitioner Family
DX: S93.402A Sprain of unspecified ligament of left ankle, initial encounter (principal); S93.602A Unspecified sprain of left foot, initial encounter; S39.012A Strain of muscle, fascia and tendon of lower back, initial encounter; W10.9XXA Fall (on) (from) unspecified stairs and steps, initial encounter; K21.9 Gastro-esophageal reflux disease without esophagitis; E78.5 Hyperlipidemia, unspecified; M19.90 Unspecified osteoarthritis, unspecified site; E11.42 Type 2 diabetes mellitus with diabetic polyneuropathy; Z79.84 Long term (current) use of oral hypoglycemic drugs; Z79.4 Long term (current) use of insulin
CPT/HCPCS: 72100; 73610; 73630; 99214; G0463

== ENCOUNTER 2025-03-27 08:05 | Emergency (ER) | payer OTHER, SELFPAY ==
--- NOTE | 2025-03-27 08:11 | ED_ITS ---
HPI - Extremity Problem General Chief complaint: Extremity Problem,Nontraumatic Stated complaint: Toe on Right foot red Time Seen by Provider: 03/27/25 08:05 Source: patient Mode of arrival: ambulatory Limitations: no limitations History of Present Illness HPI Narrative: Patient is a 62-year-old female who presents with redness and swelling to the 2nd toe on the right foot. Patient has had cellulitis to 3rd toe on the right foot previously and states it feels and looks the same. Patient is diabetic and does have neuropathy in her feet. Denies known trauma to toes. Patient also recently had wasp sting to right forearm. Patient still has large area of erythema. Patient states it has been extremely swollen at that has gone down significantly. Patient has been using [id number] medications. Related Data Home Medications ?Medication ?Instructions ?Recorded ?Confirmed ?Last Taken ?Type metformin 1,000 mg tablet 1,000 mg PO BID 08/11/19 05/23/24 Unknown History omeprazole 40 mg capsule,delayed 40 mg PO DAILY 04/29/20 05/23/24 Unknown History release cyanocobalamin (vitamin B-12) 1,000 mcg PO DAILY 05/08/21 05/23/24 Unknown History 1,000 mcg tablet glimepiride 2 mg tablet 2 mg PO DAILY 05/08/21 05/23/24 Unknown History magnesium oxide 400 mg (241.3 mg 400 mg PO DAILY 05/08/21 05/23/24 Unknown History magnesium) tablet montelukast 10 mg tablet 10 mg PO DAILY 05/08/21 05/23/24 Unknown History pregabalin 100 mg capsule 100 mg PO DAILY 05/08/21 05/23/24 Unknown History pregabalin 25 mg capsule 25 mg PO DAILY 05/08/21 01/09/22 Unknown History insulin glargine 100 unit/mL (3 100 unit subcut DIRECTED 01/09/22 01/09/22 Unknown History mL) subcutaneous pen (Lantus Solostar U-100 Insulin) levothyroxine 75 mcg tablet 75 mcg PO DAILY 01/09/22 01/09/22 Unknown History dapagliflozin propanediol 10 mg mg 05/23/24 Unknown History tablet (Farxiga) dulaglutide 3 mg/0.5 mL mg subcut 05/23/24 Unknown History subcutaneous pen injector ([facility]) Allergies Allergy/AdvReac Type Severity Reaction Status Date / Time Qoknvjo-EPB-RtZ Reductase Allergy Mild pain Verified 03/27/25 08:14 Inhibitor (Yzrxpsz-Til-Tyg Reductase Inhibitor) acetaminophen Allergy Unknown Itching Verified 03/27/25 08:14 hydrocodone Allergy Unknown Itching Verified 03/27/25 08:14 propoxyphene Allergy Unknown Swelling Verified 03/27/25 08:14 of Lip/Tongue/Throat tramadol Allergy Unknown Itching Verified 03/27/25 08:14 codeine AdvReac Unknown Nausea and Verified 03/27/25 08:14 Vomiting Review of Systems 2 Review of Systems: All systems reviewed & are unremarkable except as noted in HPI and below Constitutional: Constitutional: Denies body ache(s), Denies chills, Denies fatigue, Denies fever(s), Denies headache(s), Denies malaise and Denies weakness Eyes: Eyes: Denies blurry vision, Denies irritation and Denies loss of vision ENT: Denies otalgia, Denies headache(s), Denies nasal discharge, Denies sinus pain and Denies sore throat Cardiovascular: Cardiovascular: Denies chest pain, Denies irregular heart rhythm and Denies dyspnea Respiratory: Respiratory: Denies dyspnea Gastrointestinal: Gastrointestinal: Denies abdominal pain, Denies melena, Denies hematochezia, Denies diarrhea, Denies nausea and Denies vomiting Musculoskeletal: Musculoskeletal: Denies back pain, Denies myalgias and Denies arthralgias Integumentary/Breasts: Skin/Breast: Denies pruritus, Reports erythema, Denies rash and Reports skin swelling Neurologic: Denies headache(s), Denies loss of vision and Denies weakness Psychiatric: Psychiatric: Reports no additional psychiatric complaints Endocrine: Endocrine: Denies fatigue [facility] Past Medical History Medical History Peripheral neuropathy Seasonal allergic conjunctivitis History of peptic ulcer disease Vitamin D deficiency Tubal infertility in female Osteoarthritis GERD (gastroesophageal reflux disease) Diabetes Hyperlipidemia Surgical History Surgical History S/P thyroid biopsy H/O rhinoplasty H/O tubal ligation History of tonsillectomy and adenoidectomy History of carpal tunnel release Right wrist S/P cubital tunnel release Right elbow Previous section History of cholecystectomy History of [place] fundoplication Family History Family History Mother Diabetes mellitus Heart disease Breast cancer Carcinoma of colon Hypertension Father Heart disease Sibling Diabetes mellitus Liver cancer Cardiac aneurysm Social History Social History Social History: The patient lives with her and she is unemployed. The patient has 2 children. Her is the durable power privacy attorney for healthcare the patient desires to be full code. The patient is a lifelong nonsmoker. She does not use any alcohol marijuana illicit drug. Smoking status: Never smoker Second hand tobacco smoke exposure: Yes (Spouse is a cigarette smoker) Alcohol intake: former Substance use: never Substance use type: does not use Living arrangements: with family Occupation/Education: unemployed Gender identity (if verbalized by the patient): Female Spiritual care concerns: No Comments At time of signature, agree with nursing past medical, surgical, social and family history. There is no relevant family history pertinent to the presenting complaint. Exam 2 Const: General: cooperative, healthy appearing, comfortable, no acute distress and well nourished Nutritional Appearance: well nourished O rientation/consciousness: patient oriented x3 Limitations: no limitations HENMT: Head: normal to inspection, normocephalic and atraumatic Ears: h earing grossly normal bilaterally and external ears normal Face/Nose/Sinus: N ormal external nose present, normal facial exam and face symmetric Face and sinus: normal facial exam and face symmetric Mouth: Yes lip normal Eyes: General: appearance normal, both eyes and all related structures A lignment and Position: alignment normal and position normal Periorbital: p eriorbital findings normal Eyelids: eyelids normal Pupils: Equal, round and reactive pupils present EOM: EOMs intact bilaterally Neck: Neck: normal visual inspection, full ROM and supple Chest: Chest palpation & inspection: normal inspection of the chest Resp: Effort & Inspection: normal respiratory effort and able to speak in complete sentences Auscultation: clear to auscultation bilaterally Cardio: Rate: regular rate Rhythm: regular rhythm Heart sounds: S1 normal heart sound present and S2 normal heart sound present GI: Inspection: normal to inspection Skin: General skin exam: normal color and no rashes or lesions noted Neuro: General: patient oriented x3 and moves all extremities Cranial nerves: Yes Equal, round and reactive pupils present Speech: normal speech Gait exam (Neuro): Normal gait present Extrem: General: normal to inspection, full ROM and no edema Ankle/foot/toe images: 1. erythema, swelling and mild warmth. NO pain on palpation Psych: Appearance: grossly normal and well kempt Mental Status: mental status grossly normal Speech and movement: Normal speech and movement present Affect: normal affect Attitude: cooperative Thought process: Normal thought process present Course Course Emergency Course: Patient is aware of diagnosis, understands and agrees to treatment plan. Anticipatory guidance given. Patient agrees to follow-up as directed and is aware of reasons to seek care at the emergency department. Portions of this record may have been created with voice recognition software Level of Care: Express Care Visit Vital Signs Vital signs: Reviewed MDM - Extremity (Nontraumatic) MDM Narrative Medical decision making narrative: Pt well hydrated appearing, in no respiratory distress, hemodynamically stable. Recommend supportive care. The patient is stable at time of discharge the clinical impression was discussed and the patient was given the opportunity to ask questions, which were addressed as completely as possible given the information available at present. Anticipatory guidance and return to care precautions were discussed and the importance of primary care follow-up was stressed and encouraged. The patient voiced understanding of the plan, indications to return, and the need for follow-up. Exam findings show no acute concerns or changes Patient is appropriate for outpatient treatment and follow-up. Differential Diagnosis Differential diagnosis: Likely gout, cellulitis and other (Hematoma, toe fracture) Discharge Plan Discharge Clinical Impression: Cellulitis Qualifiers: Site of cellulitis: extremity Site of cellulitis of extremity: toe Laterality: right Qualified Code(s): L03.031 - Cellulitis of right toe Patient Disposition: Home Condition: Stable Instructions: Cellulitis (ED) Additional Instructions: Please follow up with your Primary Care Doctor within 48-72 hours - call for an appointment. Rest and elevate affected area; apply moist heat 3-4 times daily for 10-15 minutes. Clean with soap and water only; Avoid using alcohol and peroxide. Elevate the affected area if possible Please take Antibiotics as directed. For pain, you may take: Tylenol 650-1000mg by mouth every 4-6 hours. Do not exceed 4000mg in 24 hours. Advil (Ibuprofen) 600 mg by mouth every 6 hours. Do not exceed 2400mg in 24 hours. 8 AM: Tylenol 11 AM: Ibuprofen 2 PM: Tylenol 5 PM: Ibuprofen 8 PM: Tylenol 11 PM: Ibuprofen 2 AM: Tylenol 5 AM: Ibuprofen If you experience any worsening redness, swelling, streaking (red lines), fever or chills please go to the ER Patient Language: Upper Sorbian Prescriptions: New cephalexin 500 mg capsule 500 mg PO Q12H 5 Days Qty: 10 0RF mupirocin 2 % ointment 1 applic topical BID Qty: 15 0RF No Action metformin 1,000 mg Tablet 1,000 mg PO BID omeprazole 40 mg capsule,delayed release(DR/EC) 40 mg PO DAILY levothyroxine 75 mcg tablet 75 mcg PO DAILY Lantus Solostar U-100 Insulin 100 unit/mL (3 mL) insulin pen 100 unit SUBCUT DIRECTED sulfamethoxazole-trimethoprim [Bactrim DS] 800-160 mg tablet 1 tablet PO Q12H Qty: 10 0RF dapagliflozin propanediol [Farxiga] 10 mg tablet Trulicity 3 mg/0.5 mL pen injector SUBCUT naproxen 500 mg tablet 500 mg PO BID PRN (Reason: pain) 7 Days Qty: 14 0RF baclofen 10 mg tablet 10 mg PO TID PRN (Reason: muscle spasm) 7 Days Qty: 21 0RF cyanocobalamin (vitamin B-12) 1,000 mcg tablet 1,000 mcg PO DAILY glimepiride 2 mg tablet 2 mg PO DAILY pregabalin 25 mg capsule 25 mg PO DAILY pregabalin 100 mg capsule 100 mg PO DAILY magnesium oxide 400 mg (241.3 mg magnesium) tablet 400 mg PO DAILY montelukast 10 mg tablet 10 mg PO DAILY carvedilol 12.5 mg tablet 12.5 mg PO BID Qty: 60 0RF Rx Instructions: must administer with a meal/food aspirin 81 mg tablet,delayed release (DR/EC) 81 mg PO DAILY Qty: 30 0RF Follow-up/Referrals: Tomas,Thao Benjamin APN [Primary Care Provider] - 3 Days Time of Disposition: 08:36
[2025-03-27 08:16] VITALS: BP 146/78; PULSE 80; RESP 16; TEMP 36.8; O2SAT 97
== END 2025-03-27 08:39 | disposition home or self-care (01) ==
PROVIDERS: Emergency Provider Nurse Practitioner Family; PCP Nurse Practitioner Family
DX: L03.031 Cellulitis of right toe (principal); E11.42 Type 2 diabetes mellitus with diabetic polyneuropathy; Z79.4 Long term (current) use of insulin; Z79.84 Long term (current) use of oral hypoglycemic drugs; E78.5 Hyperlipidemia, unspecified; K21.9 Gastro-esophageal reflux disease without esophagitis; M19.90 Unspecified osteoarthritis, unspecified site
CPT/HCPCS: 99213; G0463